=== PATIENT | male | born 2005 | race Caucasian/White ===

== ENCOUNTER 2023-02-14 15:11 | Emergency (ER) | payer BC ==
[~2023-02-14 15:11] MED LIST: Iopamidol 300 61% 100 ML VIAL FS ONE
[2023-02-14] MEDS ORDERED: Dicyclomine 20 MG/2 ML VIAL ONE (15:35)
[2023-02-14] MEDS ORDERED: Ondansetron PF 4 MG/2 ML Vial ONE (15:35)
[2023-02-14] MEDS ORDERED: Ketorolac Tromethamine 30 MG/ML VIAL ONE (15:35)
[2023-02-14 15:45] LABS: #Basophils 0.1 10x3/uL (0.0-0.2); #Eosinphils 0.2 10x3/uL (0.0-0.5); #Monocytes 1.4 10x3/uL (0.0-1.1); %Basophils 0.5 % (0.0-2.0); %Eosinophils 0.7 % (0.0-6.0); %Lymphocytes 4.7 % (18.0-47.0); %Monocytes 6.2 % (0.0-10.0); %Neutrophils 87.3 % (40.0-75.0); Hematocrit 44.7 % (38.8-50.0); Hemoglobin 15.2 g/dL (13.5-17.5); Mean Corpuscular Hemoglobin 28.7 pg (27.0-33.0); Mean Corpuscular Volume 84.3 fl (81.2-95.1); Mean Platelet Volume 9.6 fl (7.4-10.4); Platelet Count 309 10x3/uL (150-450); White Blood Cell (WBC) Count 22.9 10x3/uL (3.5-10.5)
[2023-02-14 16:16] LABS: Acetaminophen Less than 10 mcg/mL (10.0-30.0); Alcohol Less than 10.0 mg/dL (Less than 10); Lipase 10 U/L (8-78); Salicylate Less than 8.0 mg/dL (15.0-30.0)
[2023-02-14 16:18] LABS: ALT (SGPT) 10 U/L (8-55); AST (SGOT) 16 U/L (10-45); Albumin 4.4 g/dL (3.5-5.0); Alkaline Phosphatase 96 U/L (50-130); Anion Gap 20 mmol/L (10-20); BUN (Urea Nitrogen) 17 mg/dL (8.4-21.0); Bilirubin, Total 1.8 mg/dL (0.2-1.2); Calc. Creatinine Clearance 0 mL/min (70-130); Calcium 9.3 mg/dL (7.8-10.44); Carbon Dioxide 21 mmol/L (22-29); Chloride 98 mmol/L (98-107); Estimated GFR 114; Globulin 3.9 g/dL (2.4-3.5); Glucose 111 mg/dL (70-105); Potassium 3.8 mmol/L (3.5-5.1); Protein, Total 8.3 g/dL (6.0-8.3); Sodium 135 mmol/L (136-145)
[2023-02-14 16:53] LABS: Bilirubin 1+ (Negative); Blood, Urine 10 (Negative); Clarity Clear (Clear); Glucose, Urine (Dipstick) Normal (Negative); Ketone, Urine 15 mg/dL (Negative); Leukocyte 25 (Negative); Nitrite Negative (Negative); Protein, Urine (Dipstick) 30 mg/dl (Neg-Trace)
[2023-02-14] MEDS ORDERED: Amoxicillin/Potassium Clav 875 MG TAB ONE (16:58)
[2023-02-14 17:01] LABS: Amphetamine Not Detected (NotDetected); Barbiturates Screen Not Detected (NotDetected); Benzodiazepine Screen Not Detected (NotDetected); Cocaine Metabolite Screen Not Detected (NotDetected); Methadone Not Detected (NotDetected); Methamphetamine Not Detected (NotDetected); Opiate Screen Not Detected (NotDetected); Oxycodone Screen Not Detected (NotDetected); Phencyclidine (PCP) Not Detected (NotDetected); THC/Cannabinoid Screen Detected (NotDetected); Tricyclic Screen Not Detected (NotDetected)
[2023-02-14] MEDS ORDERED: Morphine 4 MG/ML VIAL ONE (17:10)
[2023-02-14 17:38] LABS: Bacteria/HPF None Seen HPF (None Seen); CAUTI Indications for Culture Pelvic or flank pain; RBC/HPF 0-3 HPF (0-3); Squamous Epithelial None Seen HPF (0-3); WBC/HPF 0-3 HPF (0-3)
[2023-02-14 17:40] LABS: Urine Culture Reflex No No
== END 2023-02-14 17:32 | disposition home or self-care (01) ==
LOC: CSHERS 15:11
DX: K52.9 Noninfective gastroenteritis and colitis, unspecified (principal); F17.290 Nicotine dependence, other tobacco product, uncomplicated
CPT/HCPCS: 36415; 74177; 80053; 80306; 80307; 81001; 83690; 83735; 85025; 87040; 96372; 96374; 96375; J1885; J2270; J2405; Q9967